=== PATIENT | male | born 1990 | race Caucasian/White ===

== ENCOUNTER 2017-10-15 17:55 | Emergency (ER) | payer BC, MEDICAID ==
[2017-10-15] MEDS ORDERED: Tetracaine 0.5% OPTH.SOL 4 ML* 1 DROP BTL ONE (20:26)
[2017-10-15] MEDS ORDERED: Fluorescein Sod TOPICAL 0.6* 0.6 MG TEST OPHTHALMIC ONE (20:26)
[2017-10-15] MEDS ORDERED: Tetan/Diph/Pertus SYR(Tdap)* 0.5 ML SYR(BOOSTRIX) use SYR IM ONE (21:22)
[2017-10-15] MEDS ORDERED: Polymyx/Trimethoprim OPTH* 10 ML BTL RIGHT EYE ONE (21:23)
--- NOTE | 2017-10-15 21:25 | ED ---
Throat Pain/Nasal Congestion - HPI Summary HPI Summary: 27 year male presents with right eye foreign body for past couple hours. He states he was grinding and felt some metal get into his eye. He is unsure of when his last tetanus was. He admits to photophobia. He admits to blurry vision. He has had frequent foreign bodies in his eye so he has an eye doctor he uses. He states this injury occurred at work. He does not wear glasses or contacts. He states he believed that there is only one object in his eye. He denies any other injury. pain is 10 out of 10. - History of Current Complaint Chief Complaint: EDEyeProblem Time Seen by Provider: 10/15/17 20:17 - Allergies/Home Medications Allergies/Adverse Reactions: Allergies Allergy/AdvReac Type Severity Reaction Status Date / Time No Known Allergies Allergy Verified 08/03/15 20:59 PMH/Surg Hx/FS Hx/Imm Hx Endocrine/Hematology History: Denies: Hx Anticoagulant Therapy Cardiovascular History: Denies: Hx Congestive Heart Failure Infectious Disease History: No Infectious Disease History: Denies: Traveled Outside the [place] in Last 30 Days - Family History Known Family History: Positive: Unknown - Social History Alcohol Use: None Substance Use Type: Reports: None Smoking Status (MU): Never Smoked Tobacco Review of Systems Negative: Fever Positive: Erythema, Other - foreign body right eye Negative: Chest Pain Negative: Shortness Of Breath All Other Systems Reviewed And Are Negative: Yes Physical Exam Triage Information Reviewed: Yes Vital Signs On Initial Exam: Initial Vitals Temp Pulse Resp BP Pulse Ox 98.5 F 83 16 121/57 98 10/15/17 17:59 10/15/17 17:59 10/15/17 17:59 10/15/17 17:59 10/15/17 17:59 Vital Signs Reviewed: Yes Appearance: Positive: Well-Appearing Skin: Positive: Warm, Dry Head/Face: Positive: Normal Head/Face Inspection Eyes: Positive: EOMI, JAROD, Conjunctiva Inflammed, Other: - small foreign body at 3 position right eye, rust ring after removal, no uptake fluorscein exam ENT: Positive: Normal ENT inspection, Pharynx normal, TMs normal Respiratory/Lung Sounds: Positive: Clear to Auscultation, Breath Sounds Present Cardiovascular: Positive: Normal, RRR Musculoskeletal: Positive: Normal Neurological: Positive: Normal Psychiatric: Positive: Normal Procedures - Eye Procedure Alcaine Drops Administered: Yes - no uptake Eye FB Removal: removal w/ cotton swab Diagnostics - Vital Signs Vital Signs Temp Pulse Resp BP Pulse Ox 10/15/17 17:59 98.5 F 83 16 121/57 98 - Laboratory Lab Statement: Any lab studies that have been ordered have been reviewed, and results considered in the medical decision making process. EENT Course/Dx - Course Course Of Treatment: 27 year male presents with right eye foreign body for past couple hours. He states he was grinding and felt some metal get into his eye. He is unsure of when his last tetanus was. He admits to photophobia. He admits to blurry vision. He has had frequent foreign bodies in his eye so he has an eye doctor he uses. He states this injury occurred at work. He does not wear glasses or contacts. He states he believed that there is only one object in his eye. He denies any other injury. pain is 10 out of 10. rust ring left. No uptake on fluorescein exam. Placed on Polytrim. Will have follow-up with ophthalmology. Patient is an extreme amount of pain so wll write a prescription for pain medication. Patient understands and agrees with the plan. - Differential Diagnoses Differential Diagnoses: Conjunctivitis, Corneal Abrasion, Foreign Body - Diagnoses Provider Diagnoses: Foreign body of right eye Discharge - Sign-Out/Discharge Documenting (check all that apply): Discharge/Admit/Transfer - Discharge Plan Condition: Good Disposition: HOME Patient Education Materials: Eye Foreign Body (ED) Referrals: No Primary Care Phys,NOPCP [Primary Care Provider] - Additional Instructions: Place 1 drop in eye 4 times a day for 5 days of polytrim Use artificial tears or saline to rinse eye for symptomatic relief Take Tylenol or ibuprofen for pain, use narcotic for break through pain Follow up with ophthalmology Return to ED if develop any new or worsening symptoms - Billing Disposition and Condition Condition: GOOD Disposition: HOME
[2017-10-15 21:52] VITALS: BP 139/92
== END 2017-10-15 21:50 | disposition home or self-care (01) ==
LOC: ED 17:55
DX: T15.91XA Foreign body on external eye, part unspecified, right eye, initial encounter (principal); S00.251A Superficial foreign body of right eyelid and periocular area, initial encounter; H53.8 Other visual disturbances
CPT/HCPCS: 90471; 90715; 99282; A9270-GY